=== PATIENT | female | born 1950 | race African-American/Black ===

== ENCOUNTER 2023-09-29 11:08 | Emergency (ER) | payer OTHER ==
[~2023-09-29] VITALS: Ht 160 cm; Wt 104.5 kg
[2023-09-29] MEDS ORDERED: PEPCID (11:12)
[2023-09-29] MEDS ORDERED: HYDROXYCHLOROQUINE (11:12)
[2023-09-29] MEDS ORDERED: LIPITOR (11:12)
[2023-09-29] MEDS ORDERED: ALBUTEROL (11:12)
[2023-09-29] MEDS ORDERED: PRADAXA (11:12)
[2023-09-29 11:13] VITALS: O2SAT 95
[2023-09-29] MEDS ORDERED: ACETAMINOPHEN 325MG TABLET PO STA (11:16)
[2023-09-29] MEDS ORDERED: ALVESCO (11:24)
[2023-09-29] MEDS ORDERED: verapamil (11:24)
[2023-09-29] MEDS ORDERED: gleevec (11:24)
[2023-09-29] MEDS ORDERED: hydrochlorothiazide (11:24)
[2023-09-29 12:25] LABS: HEMATOCRIT. 38.7 % (36.0-48.0); HEMOGLOBIN. 13.1 g/dL (12.0-16.0); MEAN CORPUSCULAR HEMOGLOBIN 33.3 pg (28.0-32.0); MEAN CORPUSCULAR HGB CONC 33.8 g/dL (31.0-37.0); MEAN CORPUSCULAR VOLUME 98.4 fL (81.0-99.0); MEAN PLATELET VOLUME 7.5 fl (7.4-10.4); PLATELET 215 x1000/uL (130-400); RED BLOOD CELL COUNT 3.93 mill/uL (4.2-5.4); RED CELL DISTRIBUTION WIDTH 14.1 % (11.6-14.6); WHITE BLOOD COUNT 4.9 x1000/uL (4.5-11.0)
[2023-09-29 12:26] LABS: DIFFERENTIAL COMMENT 1
[2023-09-29 12:36] LABS: CHLORIDE 106 mEq/L (98-107); POTASSIUM 3.3 mEq/L (3.5-5.1); SODIUM 140 mEq/L (136-145)
[2023-09-29 12:37] LABS: CALCIUM 9.9 mg/dL (8.7-10.4); CARBON DIOXIDE 29 mEq/L (21-32)
[2023-09-29 12:42] LABS: CREATININE 0.7 mg/dL (0.6-1.0); GLUCOSE 104 mg/dL (70-105); UREA NITROGEN BLOOD 15 mg/dL (9-23)
[2023-09-29 12:43] LABS: TROPONIN I HIGH SENSITIVITY 15 ng/L (3.0-34)
[2023-09-29 12:44] LABS: ALANINE AMINOTRANSFERASE 11 IU/L (10-49); ALBUMIN 4.4 g/dL (3.2-4.8); ASPARTATE AMINOTRANSFERASE 20 IU/L (<34); BILIRUBIN TOTAL 0.8 mg/dL (0.1-1.0); PROTEIN TOTAL 7.3 g/dL (6.0-8.3)
[2023-09-29 13:01] LABS: PLATELET ESTIMATE NORMAL
[2023-09-29 13:41] VITALS: TEMP 98
[2023-09-29] MEDS: ACETAMINOPHEN 325MG TABLET PO NR (13:41)
[2023-09-29 17:46] VITALS: BP 141/76; PULSE 79; RESP 27
== END 2023-09-29 17:53 | disposition short-term general hospital (02) ==
LOC: ER 11:08 → EDBEDREQ 15:13 → ER 17:53 → CANBEDREQ 21:10
DX: R55 Syncope and collapse (principal); R42 Dizziness and giddiness; I10 Essential (primary) hypertension
CPT/HCPCS: 36415; 71045; 80053; 83880; 84484; 85025; 93005; 99285

== ENCOUNTER 2023-11-24 01:54 | Emergency (ER) | payer OTHER ==
[~2023-11-24] VITALS: Ht 170.2 cm; Wt 105.0 kg
[~2023-11-24 01:54] MED LIST: ALBUTEROL; ALVESCO; HYDROXYCHLOROQUINE; LIPITOR; PEPCID; PRADAXA; gleevec; hydrochlorothiazide; verapamil
[2023-11-24 01:57] VITALS: O2SAT 98
[2023-11-24] MEDS: ONDANSETRON HCL 4MG/2ML INJ IV STA (02:03)
[2023-11-24] MEDS: ACETAMINOPHEN 1000MG/100ML 100 ML IV ONE (02:15)
[2023-11-24] MEDS: SODIUM CHLORIDE 0.9% 1,000 ML IV ONE (02:15)
[2023-11-24 02:26] LABS: HEMATOCRIT. 37.4 % (36.0-48.0); HEMOGLOBIN. 12.7 g/dL (12.0-16.0); MEAN CORPUSCULAR HEMOGLOBIN 33.3 pg (28.0-32.0); MEAN CORPUSCULAR VOLUME 97.9 fL (81.0-99.0); MEAN PLATELET VOLUME 6.8 fl (7.4-10.4); PLATELET 222 x1000/uL (130-400); RED BLOOD CELL COUNT 3.82 mill/uL (4.2-5.4); RED CELL DISTRIBUTION WIDTH 14.5 % (11.6-14.6); WHITE BLOOD COUNT 6.5 x1000/uL (4.5-11.0)
[2023-11-24 02:28] LABS: CHLORIDE 105 mEq/L (98-107); POTASSIUM 3.4 mEq/L (3.5-5.1); SODIUM 141 mEq/L (136-145)
[2023-11-24 02:29] LABS: CARBON DIOXIDE 30 mEq/L (21-32)
[2023-11-24 02:30] LABS: CALCIUM 9.6 mg/dL (8.7-10.4)
[2023-11-24 02:31] LABS: DIFFERENTIAL COMMENT 1
[2023-11-24 02:34] LABS: CREATININE 0.7 mg/dL (0.6-1.0); GLUCOSE 132 mg/dL (70-105)
[2023-11-24 02:35] LABS: UREA NITROGEN BLOOD 16 mg/dL (9-23)
[2023-11-24 02:36] LABS: ALANINE AMINOTRANSFERASE 14 IU/L (10-49); ALBUMIN 4.4 g/dL (3.2-4.8); ASPARTATE AMINOTRANSFERASE 21 IU/L (<34); TROPONIN I HIGH SENSITIVITY 17 ng/L (3.0-34)
[2023-11-24 02:37] LABS: BILIRUBIN DIRECT 0.3 mg/dL (<=3.0); BILIRUBIN TOTAL 0.6 mg/dL (0.1-1.0); PARTIAL THROMBOPLASTIN TIME 35.8 sec (23.4-31.0); PROTHROMBIN TIME 11.4 sec (9.6-11.0)
[2023-11-24 03:07] LABS: PLATELET ESTIMATE NORMAL
[2023-11-24 03:31] LABS: ETHANOL BLOOD < 10 mg/dL (<10)
[2023-11-24 04:25] LABS: CLARITY URINE CLEAR (CLEAR); COLOR URINE YELLOW (YELLOW); GLUCOSE URINE NEGATIVE (NEGATIVE); KETONES URINE NEGATIVE (NEGATIVE); LEUKOCYTE ESTERASE URINE NEGATIVE (NEGATIVE); NITRITE URINE NEGATIVE (NEGATIVE); OCCULT BLOOD URINE NEGATIVE (NEGATIVE); PH URINE 6.5 (4.5-8.0); PROTEIN URINE NEGATIVE (NEGATIVE); SPECIFIC GRAVITY URINE 1.022 (1.005-1.030)
[2023-11-24 04:32] LABS: *AMPHETAMINES SCREEN URINE NEGATIVE (NEGATIVE); *BARBITURATES SCREEN URINE NEGATIVE (NEGATIVE); *BENZODIAZEPINES SCREEN URINE NEGATIVE (NEGATIVE); METHADONE URINE SCREEN NEGATIVE (NEGATIVE); OPIATES URINE SCREEN NEGATIVE (NEGATIVE); PHENCYCLIDINE URINE SCREEN NEGATIVE (NEGATIVE)
[2023-11-24 04:33] LABS: CANNABINOID URINE SCREEN NEGATIVE (NEGATIVE); ECSTASY MDMA SCREEN URINE NEGATIVE (NEGATIVE)
[2023-11-24] MEDS: MECLIZINE 12.5MG TABLET PO NR (04:39)
[2023-11-24 05:00] LABS: *COCAINE SCREEN URINE NEGATIVE (NEGATIVE)
[2023-11-24 08:32] VITALS: BP 131/65; PULSE 64; RESP 13; TEMP 98.2
== END 2023-11-24 08:47 | disposition short-term general hospital (02) ==
LOC: ER 01:54 → EDBEDREQ 08:01 → ER 08:47
DX: R42 Dizziness and giddiness (principal); I10 Essential (primary) hypertension; Z00.00 Encounter for general adult medical examination without abnormal findings; Z88.1 Allergy status to other antibiotic agents; Z88.5 Allergy status to narcotic agent; Z79.899 Other long term (current) drug therapy; Z85.6 Personal history of leukemia
CPT/HCPCS: 80076; 80305; 80048; 81003; 80320; 83880; 85025; 85610; 85730; 84484; 36415; 71045; 70450; 93005; 96365; 96366; 96375; 99285; J8597; J2405; J7030; G0480; J0131